=== PATIENT | female | born 1995 | race Two or more races ===

== ENCOUNTER 2017-04-02 10:39 | Emergency (ER) | payer MEDICAID ==
[~2017-04-02] VITALS: Ht 165.1 cm; Wt 115.0 kg
[2017-04-02 10:45] VITALS: BP 130/76
== END 2017-04-02 11:12 | disposition home or self-care (01) ==
LOC: ED 11:02
DX: J02.9 Acute pharyngitis, unspecified (principal); H65.02 Acute serous otitis media, left ear
CPT/HCPCS: 99283

== ENCOUNTER 2017-09-09 23:30 | Emergency (ER) | payer SELFPAY ==
[~2017-09-09] VITALS: Ht 165.1 cm; Wt 124.4 kg
[2017-09-09 23:32] VITALS: BP 141/84
== END 2017-09-10 00:27 | disposition home or self-care (01) ==
LOC: ED 23:50
DX: H66.91 Otitis media, unspecified, right ear (principal)
CPT/HCPCS: 99283

== ENCOUNTER 2017-10-09 12:23 | Emergency (ER) | payer SELFPAY ==
[~2017-10-09] VITALS: Ht 165.1 cm; Wt 125.9 kg
[2017-10-09 12:28] VITALS: BP 109/65
== END 2017-10-09 13:09 | disposition home or self-care (01) ==
LOC: ED 13:00
DX: H60.502 Unspecified acute noninfective otitis externa, left ear (principal); H92.02 Otalgia, left ear
CPT/HCPCS: 99283

== ENCOUNTER 2017-10-12 06:35 | Emergency (ER) | payer SELFPAY ==
[~2017-10-12] VITALS: Ht 165.1 cm; Wt 125.1 kg
[2017-10-12 06:39] VITALS: BP 132/87
[2017-10-12] MEDS ORDERED: LIDOCAINE-MPF 1%, 5ML INFIL ONE (08:00)
[2017-10-12] MEDS ORDERED: LIDOCAINE-MPF 1%, 2ML ONE (08:01)
[2017-10-12] MEDS ORDERED: CIPROFLOXACIN/HYDROCORTISONE EAR SUSP 0.2-1%, 10ML LEFT EAR ONE (08:30)
[2017-10-12] MEDS ORDERED: IBUP-11 PO (09:23)
== END 2017-10-12 09:25 | disposition home or self-care (01) ==
LOC: ED 09:02
DX: H60.12 Cellulitis of left external ear (principal)
CPT/HCPCS: 99283